=== PATIENT | female | born 1995 | race Caucasian/White ===

== ENCOUNTER 2025-06-07 21:22 | Emergency (ER) | payer MEDICAID, SELFPAY ==
--- OUTSIDE RECORDS SUMMARY | 2023-12-21 10:30 | XMS_ITS ---
Author Organization [facility] vices Address [address] [place], [place] [id number] Care Team Providers Care Mushroom Spawn Maker Name Role Phone Ruthann Garcia Primary Care Provider [phone] Jenifer Belcher REASON FOR VISIT F/u Diarrhea/ GERD Social History Sex Assigned At : Social History Observation Description Sex Assigned At Female Encounters Encounter Location Date Provider Diagnosis Main [address] [place], [place] [id number] 12/21/2023 Jenifer Mota Plan Of Treatment No Information Progress Notes * Doug PRICE LDOB:[birth year] (29 yo F)Acc No.[id number]:12/21/2023 Medical Note Patient: Shreyas Suhute Jacob :?Jenifer Latham, MSN, BALLOON SANDER, ELEVATOR ERECTOR HELPER-CDOB: 1995???Age:28 Y???Sex:FemaleDate:12/21/2023hone:[phone]:[address] [place], [place] [id number]:Ruthann Garcia Subjective: * Chief Complaints: * F /u Diarrhea/ GERD Billing Information: * Procedure Codes: * Electronic signature of KALLIE Smith on 06/07/2025 at 09:48 PM ESTSign off status: Pending * Provider: Dori Latham, MSN, BALLOON SANDER, ELEVATOR ERECTOR HELPER-C Date: 0 12/21/2023 Generated for Printing/Faxing/eTransmitting on:?06/07/2025 09:48 PM EST
--- OUTSIDE RECORDS SUMMARY | 2024-05-03 03:30 | XMS_ITS ---
Author Organization [facility] vices Address [address] [place], [place] [id number] Care Team Providers Care Cone Picker Name Role Phone Ruthann Garcia Primary Care Provider REASON FOR VISIT exposure to lead Social History Sex Assigned At : Social History Observation Description Sex Assigned At Female Encounters Encounter Location Date Provider Diagnosis Main [address] [place], [place] [id number] 05/03/2024 Ruthann Garcia Plan Of Treatment No Information Progress Notes * Doug PRICE LDOB:[birth year] (29 yo F)Acc No.[id number]:05/03/2024 Medical Note Patient: Doug Suh :?Ruthann Garcia MDDOB:1995???Age:28 Y???Sex: FemaleDate:05/03/2024hone:[phone]:[address] [place] [id number] Subjective: * Chief Complaints: * E xposure to lead Billing Information: * Procedure Codes: * Electronic signature of Ruthann Garcia MD on 06/07/2025 at 09:48 PM ESTSign off status: Pending * Provider: Elise Garcia MD Date: 07/03/2023 Generated for Printing/Faxing/eTransmitting on:?06/07/2025 09:48 PM EST
[2025-06-07] VITALS (9 sets, daily range): BP systolic 137–152; BP diastolic 82–103; PULSE 70–81; TEMP 36.8; O2SAT 92–100; BMI 49.9
--- NOTE | 2025-06-07 21:37 | ECG_ITS ---
[facility] Test Date: 2025-06-07 Pat Name: BEATRIZ PRICE Department: Room: - Gender: Female Chief Architect: : 1995 Requested By: Madi Taveras Order Number: [id number] Brenna MD: BERTRAM BADILLO M.D. Measurements Intervals [place] Rate: 80 P: -14 WA: 140 QRS: -47 QRSD: 98 T: 10 QT: 384 QTc: 419 Interpretive Statements 1100 Sinus rhythm 2440 Incomplete right bundle branch block 2630 Left anterior fascicular block 8003 Consistent with pulmonary disease 9150 abnormal ECG Compared to ECG 11/15/2017 22:57:56 Incomplete right bundle-branch block now present Left anterior fascicular block now present Electronically Signed On 06-07-2025 22:43:20 EST by BERTRAM BADILLO M.D.
--- OUTSIDE RECORDS SUMMARY | 2025-06-07 21:47 | XMS_ITS | Clinical Summary ---
Demographics Address [address] [place] [address] Mobile Phone Home Phone Email Address Email Address Preferred Language Malagasy Marital Status Single Advent Affiliation Unknown Race or A laska Grayling Additional Race(s) White Ethnic Group or Author Organization [employer] Address [id number] [address] [place] [address] Care Team Providers Care Seat Cover Installer Name Role Phone Brandon Mcqueen PA-C Primary Care Provider [phone] Allergies Active AllergyReactionsCriticalityNoted EjynPppaeealZkmqjldujk05/19/2017 Medications MedicationSigDispense QuantityRefillsLast FilledStart DateEnd DateStatus loperamide (IMODIUM) 2 mg capsule Take 1 capsule (2 mg total) by mouth as needed for diarrhea.12/28/2023ctive dicyclomine (BENTYL) 20 mg tablet Take 1 tablet (20 mg total) by mouth as needed.10/18/2023ctive pantoprazole (PROTONIX) 40 mg EC tablet Indications:Gastroesophageal reflux disease, unspecified whether esophagitis presentTake 1 tablet (40 mg total) by mouth in the morning and 1 tablet (40 mg total) before bedtime. 120 tablet 03/22/2024ctive Active Problems ProblemNoted DateDiagnosed DateFamily history of coronary artery disease 01/27/2022Morbid gdwpada9601/27/2022 Family History Medical HistoryRelationNameCommentsNo Known ProblemsFatherCoronary artery diseaseMaternal grandparentDiverticulitisMotherFibromyalgiaMotherRelationName StatusCommentsFatherAliveMaternal grandparentAliveMotherAlive Social History Tobacco UseTypesPacks/DayYears UsedDateSmoking Tobacco: NeverSmokeless Tobacco: Never Tobacco Cessation:Counseling Given: Not Answered Alcohol UseStandard Drinks/WeekCommentsNot Currently0 (1 standard drink = 0.6 oz pure alcohol)occasionallyChildcareAnswerDate ZmtnootdAuqehrephXueysxq00/12/2019 EmploymentAnswerDate IdcnhbnuSksirgefakPhyoalt15/12/2019Purpose - LifeAnswerDate RecordedPurpose and direction in vtlwHvjgtxd07/11/2021CommentsUnknownSex and Gender InformationValueDate RecordedSex Assigned at GlqwvHuzvgb52/20/2024 11:06 AM EDTLegal JlyOvmjet50/06/2015 11:51 AM EDTGender IdentityFemale 03/22/2024 11:06 AM EDTSexual OrientationNot on file Last Filed Vital Signs Vital SignReadingTime TakenCommentsBlood Npxrqicd062/9784304/02/2024 11:30 AM EDT ok to d/c per dr. torresjtpaiumYeadz0124/01/2024 11:30 AM TIXZbxqwbuuysd51.5 ??C (97.7 ??F)04/02/2024 9:03 AM EDTRespiratory Ivxw868004/02/2024 11:30 AM EDTOxygen Otbfgwmwhu058%04/02/2024 11:30 AM EDTInhaled Oxygen Concentration--Auswzr537 kg (302 lb)04/02/2024 9:03 AM QNDVgjvfl153.6 cm (5' 6 )04/02/2024 9:03 AM EDTBody Mass Index48.7404/02/2024 9:03 AM EDT Plan of Treatment Health MaintenanceDue DateLast DoneCommentsDepression Gbydspvfb15/13/2007 DTaP,Tdap and Td Vaccines (6 - Td or Tdap), 03/27/2001, 06/12/1997, Additional history existsInfluenza Eiteoxy8703/03/2025dult BMI Dxjzszhfm63Tobacco Huoqnvzoi75ap Smear Medical Devices Not on file Procedures Procedure NamePriorityDate/TimeAssociated DiagnosisCommentsPAP SMEARRoutine 08/25/2022 6:24 AM EST Encounter for screening for malignant neoplasm of cervix Encounter for screening for human papillomavirus (HPV) from Last 3 Months or Most Recently Relevant to Health Maintenance Results * Pap Smear (08/25/2022 6:24 AM EST)Specimen (Source)Anatomical Location / LateralityCollection Method / VolumeCollection TimeReceived Time08/25/2022 6:24 AM EST08/25/2022 6:38 AM EST Narrative COPATH - 08/26/2022 1:27 PM EST [facility] ? [address] [place] [address] ? [place] [address] ? Gynecologic Cytology Consultation ? Patient Name:DOUG PRICE:1995 (Age: 27)Gender:FTaken:08/25/2022Reported:08/26/2022hysician(s):Rosy Moyer M.D. ([phone])Copy To: Rec. #:[id number]: #[id number] Final Cytologic Interpretation ThinPrep Pap Test (Cervical): Satisfactory for evaluation. A transformation zone component is present. NEGATIVE FOR INTRAEPITHELIAL LESION OR MALIGNANCY. ?? [facility] [place]/08/26/2022 Interpretation performed [place] [address], License number: [id number]. Electronically Signed Out By ?VINCENT Mendez(ASCP) Date of Last Menstrual Period: ? (None Given) Other Clinical Conditions: Z12.4 Screening for malignant neoplasm of cervix Z11.51 Screening for HPV Source of Specimen ??ThinPrep Pap Test (Cervical) ? Thin Prep Pap (RESERVATIONS MANAGER) Fee Code(s): ?? G0145 Authorizing ProviderResult TypeResult StatusAbeer Comfort MDPATHOLOGY/CYTOLOGY ORDERABLESFinal ResultPerforming OrganizationAddressCity/State/ZIP CodePhone Number COPATH from Last 3 Months or Most Recently Relevant to Health Maintenance Insurance Care Teams Team MemberRelationshipSpecialtyStart DateEnd Date Brandon Mcqueen PA-C PCP - GeneralPhysician Assistant02/01/24
--- OUTSIDE RECORDS SUMMARY | 2025-06-07 21:48 | XMS_ITS | Clinical Summary ---
Demographics Address [address] [place] [address] Home Phone Mobile Phone Email Address Preferred Language en Marital Status Unmarried Mormonism Affiliation Unknown Race Other Race Ethnic Group or Author Organization [facility] Address [address] [place] [address] Care Team Providers Care Electrical Manufacturing Engineer Name Role Phone Unavailable Primary Care Provider Unavailabl e Allergies No known active allergies Medications MedicationSigDispense QuantityRefillsLast FilledStart DateEnd DateStatus famotidine (Pepcid) 20 MG tablet Take 20 mg by mouth in the morning and 20 mg before bedtime.10/18/2023ctive metroNIDAZOLE (Metrolotion) 0.75 % lotion lotion Indications:Rash and other nonspecific skin eruptionApply thin layer to face, once daily, 30 day supply 59 mL 1104Active Active Problems No known active problems Social History Tobacco UseTypesPacks/DayYears UsedDateSmoking Tobacco: NeverSmokeless Tobacco: Never Tobacco Cessation:Counseling Given: Not Answered CommentsUnknownSex and Gender InformationValueDate RecordedSex Assigned at BirthNot on fileLegal PjnJtxyeg65/15/2023 11:40 PM EDTGender IdentityNot on fileSexual OrientationNot on file Plan of Treatment Not on file Insurance * Guarantor: Doug Galeana LAccount TypeRelation to PatientDate of BirthPhone Billing AddressPersonal/JxzxjtLkcs1995 [address] [place] [address]
--- OUTSIDE RECORDS SUMMARY | 2025-06-07 21:48 | XMS_ITS | Patient Health Record ---
Author Organization [facility] vices Address [address] [place], [place] [address] Care Team Providers Care Correctional Case Manager Name Role Phone JoseRuthann hernández Primary Care Provider [phone] Allergies Allergen (clinical drug ingredient) Drug/Non Drug Allergy documented on EMR Reaction Allergy Type Onset Date Status [place] FlavorRash , EdemaDrug AllergyActive Reason For Referral No Information Medications Medication SIG (Take, Route, Frequency, Duration) Notes Start Date End Date Status Cephalexin 500 MG Capsule Oral; Duration: 5 Days Not-Taking/PRNPantoprazole Sodium 40 MG Tablet Delayed Release1 tablet Orally Twice daily; Duration: 90 days12/28/2023ctiveAspirin 81 81 MG Tablet Delayed Release1 tablet Orally Once a dayNot-Taking/PRNNitrofurantoin Monohyd Macro 100 MG Capsule1 capsule with food Orally every 12 hrs; Duration: 5 days10/06/2022 Not-Taking/PRNLoperamide HCl 2 MG Capsule1 capsule Orally two times daily as needed; Duration: 30 days12/28/2023ctiveDicyclomine HCl 20 MG Tablet 1 tablet Orally Three times a day; Duration: 14 days As needed 10/18/2023ctive Social History Tobacco Use: Social History Observation Description Date Details (start date - stop date) Never Smoker NA - NA Sex Assigned At : Social History Observation Description Sex Assigned At Female Social History Drugs/Alcohol/Caffeine:Social InfoQuestionAnswerNotesDrugsHave you used drugs other than those for medical reasons in the past 12 months?NoCaffeineIntake:none Pop occasionallyTobacco Use:Social InfoQuestionAnswerNotesTobacco Use/Smoking Tobacco use:nonsmokerpatient entered dataAdditional DetailsCategorySocial InfoOptionsDetailsMiscellaneous:Occupation:works full-timeCulture/Language BarrierNoEducation LevelCollegeBarriers to LearningNoneLearning PreferenceDoing or practicing, Watching a video, Reading, Talking in a small groupHow often do you need to have someone help you read instructionsNeverSafetyPatient feels safe in relationshipsYesDrugs/Alcohol/Caffeine:Do you smoke marijuana?DeniesDo you drink alcohol?Yes - rarely Problems Problem Type SNOMED Code ICD Code Onset Dates Problem Status W/U Status Risk Notes Problem Gastroesophageal ref lux disease (728987614) GERD (gastroesophageal reflux disease) (K21.9) Activeconfirmed -PPI somewhat helpful, counseled on avoiding known triggers -discussed and making GI / Gen Surgery referral for evaluation EGD, PVU ProblemDysmenorrhea (351016815)Dysmenorrhea (N94.6)ActiveconfirmedProblemHeavy periods (983752426)Heavy periods (N92.0)ActiveconfirmedProblemMorbid obesity (861138359)Obesity, morbid, BMI 50 or higher (E66.01)ActiveconfirmedProblem Metallic taste (33982173)Metallic taste (R43.8)ActiveconfirmedProblemRosacea (927389829)Rosacea (L71.9)ActiveconfirmedProblemPericoronitis (37257011) Pericoronitis (K05.30)ActiveconfirmedProblemIrregular periods (03338894) Irregular menstruation (626.4) (626.4)ActiveconfirmedProblemEruption of skin (710039264)Rash and nonspecific skin eruption (782.1) (782.1)09/07/2009ctive confirmedProblemDepression screening (997399337)Screening for depression (Z13.31)ActiveconfirmedDescription:Depression screenProblemVaginal discharge (149278558)Vaginal discharge (N89.8)ActiveconfirmedProblemFatigue (16895237) Fatigue (R53.83)Activeconfirmed Comment:vague symptoms, suspect thyroid non-ill appearing on exam labs studies RTO in 2 weeks PVU, ProblemGynecological examination normal (360038087193482)Well woman exam with routine gynecological exam (Z01.419)Activeconfirmed Comment:encouraged self breast exams,Story:menarche at 10 yo, q28 days, last 2 days, dysmenorrhea ocp previously helped with dysmenorrhea no std coitarche 17 yo, 1 lt partner, none current, ProblemObesity (545817095)Obesity (E66.9)ActiveconfirmedProblemCarbuncle and furuncle (680.) (680)10/29/2008ctiveconfirmedProblemAcute sinusitis (83399629) Acute infection of nasal sinus (J01.90)ActiveconfirmedComment:Instructed patient and father to take all medications as prescribed, increase oral fluids, return if symptoms worsen or do not get better. Patient and father verbalize and agree with plan.,Description:Acute sinusitisProblemNeck sprain (455714063)Neck sprain and strain (847.0) (847.0)Activeconfirmed Comment:C/w medication as prescribed by the ER. Alternate ice and heat for 20-30 minutes 3-4 times daily. Follow up in 1-2 weeks with any worsening or persisting pain, or PRN with any other concerns. All questions answered. Mom and patient verbalized understanding., ProblemAcute pharyngitis (411323846)Pharyngeal inflammation (J02.9)Active confirmedDescription:PharyngitisProblemAcute upper respiratory infection (46952598)Acute URI (465.9) (465.9)Activeconfirmed Comment:1)Feels stuffy( nose) and has a sore throat. Exam: nose; secretions+, throat: mild pharyngeal erythema+. URI. 2)Strep was negative. 3)Send for Throat Cx. 4)Will call in antibiotic if positive. 5)Call in 2 days for update. 6)FU PRN. Mom verbalized understanding Prescribed Azithromycin. Throat Cx was negative, but brother's throat cx came back positive for Streptococcus., ProblemFamily history of cardiovascular disease (859352981)Family history of cardiovascular disease (Z82.49)09/10/2009ctiveconfirmedStory:ASSESSMENT: The cardiomyopathy disease that the grandmother has is directly related to coronary artery disease( She has had multiple vessel bypass surgery). Doug's last lipid profile ( in 2007) was not grossly abnormal but that was 2 years ago. S he is currently normotensive but with he elevated BMI she is at risk for HTN, DM type 2 and hyper lipidemia and subsequently coronary heart disease . It is possible that the a hereditary hyperlipidemia syndrome exist but upon observation the entire family is obese,ProblemContact hand eczema (448821804)Contact dermatitis and eczema, due to cause (692.9) (692.9)ActiveconfirmedComment:Instructed mother and patient that previous orders from last appointment should be carried out. Referral to dermatology per request of patient and mother. Return if symptoms worsen or do not get better. Patient verbalizes and agrees with plan of care., ProblemContraception care education (723401548) control counseling (Z30.09) Activeconfirmed Comment:Had a lengthy discussion with patient regarding the different short and care home control options including, pills, ring, patch, injections, implants, and intrauterine devices hormonal and nonhormonal. Explained the chances of unintended with typical and perfect use. Discussed the risks and benefits and side effects of each at length and the patient opted for oral contraceptive pills. Explained the benefits of OCP's with cycle regulation and shortening and well as treating her dysmenorrhea. Stressed the side effects including, nausea and possible GI disturbance which she seems to have issues with and the increased risk for venous thromboembolism especially given her obesity and especially if she starts smoking. Patient verbalized understanding and wishes to try it. 3 months supply given. Advised to keep a menstrual period diary and we will review with her next visit. Reminded patient that this method will not protect against STD's and should continue using condoms for protection. Patient has not had a Pap for several years and will schedule appointment before she leaves., ProblemAllergic rhinitis (38350173)Allergic rhinitis (J30.9)Activeconfirmed Comment:low suspicion of reflux as no hx of epigastric pain treat for seasonal allergies return in 1 week, if no imporvement plan to refer to ENT, ProblemBackache (651512227)Backache (724.5) (724.5)12/30/2005ctiveconfirmed ProblemCandidal vulvovaginitis (80830809)Candidiasis of vulva and vagina (112.1) (112.1)04/16/2009ctiveconfirmedProblemInfluenza (487.) (487)05/11/2009ctive confirmedProblemVitamin D deficiency (22351550)Vitamin D deficiency (E55.9) ActiveconfirmedComment:level is 8.,ProblemGastroesophageal reflux disease (680598027)Reflux (530.81)Activeconfirmed Comment:+hoarseness, reflux and heartburn. Start PPI advised not to lie flat 2-3 hours after a meal. Keep food diary RTO in 2 weeks to evaluate effectiveness, ProblemConstipation (02638114)CN (constipation) (K59.00)12/30/2005ctive confirmedDescription:ConstipationProblemAcute upper respiratory infection (60909947)Acute upper respiratory infection of multiple sites (J06.9)Active confirmedProblemWell child visit (641067140)Routine infant or child health check (V20.2) (V20.2)09/10/2009ctiveconfirmedProblemObesity (disorder) (910402551) Overweight and obesity (E66.3)09/10/2009ctiveconfirmedProblemContraception care education done (703661908340198)BCP ( control pills) initiation (Z30.011) ActiveconfirmedProblemGeneralized abdominal pain (550932139)Abdominal pain, generalized (R10.84)Activeconfirmed Encounters Encounter Location Date Provider Diagnosis [facility] [address] [place] [address] 04/21/2025 Ruthann Jose Plan Of Treatment No Information Insurance Providers Payer Name Payer Address Payer Phone Subscriber Number Group Number Insured Name Patient Relationship to Insured Coverage Start Date Coverage End Date Alphonso [facility] [address] [place], [place] [id number] Doug Meza Self - patient is the insured [facility] [address] [place] [phone] [id number], AlyhaSelf - patient is the [id number] 2021 Medicaid [facility] after [address] [place], [place] [id number], AlyhaSelf - patient is the [id number] 2020Medicaid [facility] [address] [place], [place] [id number], AlyhaSelf - patient is the [id number] 2021 Medical (General) History Medical History History ICD Code Adolescent dysmenorrhea Dysmenorrhea Overweight and obesitySurgical History Surgery Date(Month/Year) Tonsillectomy and adenoidectomy
[2025-06-07 21:56] LABS: Hematocrit 42.6 % (36.0-48.0); Hemoglobin 14.3 g/dL (12.0-16.0); Immature Granulocytes Abs Auto 0.04 10^3/uL (0.00-0.03); Immature Granulocytes Pct Auto 0.3 % (0.0-0.5); Lymphocytes Absolute Auto 2.8 10^3/uL (1.2-3.8); Mean Corpuscular HGB Conc 33.6 g/dL (29.9-35.2); Mean Corpuscular Hemoglobin 28.8 pg (26.7-34.0); Mean Corpuscular Volume 85.9 fL (81.0-99.0); Platelet Count 399 10^3/uL (150-450); Red Blood Count 4.96 10^6/uL (4.20-5.40); White Blood Count 12.7 10^3/uL (4.0-11.0)
--- NOTE | 2025-06-07 21:58 | ED.GENADUL1 ---
HPI HPI - General Adult General Chief complaint: Dizziness Stated complaint: Dizziness Time Seen by Provider: 06/07/25 21:31 Source: patient Mode of arrival: walk-in Limitations: no limitations History of Present Illness HPI narrative: cc - high blood pressure Pt came to the Ed with her mother for evaluation after having a variety of symptoms and then noting elevated BP on the wrist device she was using at home. No prior history of HTN but she also has not seen a primary care physician in years - she told me that her prior PCP is no longer available. Complaints over the last few weeks include nausea, dizziness, visual blurring - although she is having none of those now. Manual BP 152/94 initially, machine BP 138/62 while I was in the room examining her. LMP was 2 weeks ago and periods have been normal amount and duration - she doubts . No recent injury or trauma affecting the head, neck or torso. She admitted to a sinus cold for the last few days Related Data Home Medications ?Medication ?Instructions ?Recorded ?Confirmed No Known Home Medications 06/07/25 06/07/25 Allergies Allergy/AdvReac Type Severity Reaction Status Date / Time No Known Drug Allergies Allergy Verified 06/07/25 21:33 PFSH PFSH Social History Little interest or pleasure in doing things: not at all Feeling down, depressed, or hopeless: not at all Exam Narrative Exam Narrative: Nurses notes and vital signs reviewed and patient is not hypoxic. afebrile General: Well-appearing and in no apparent distress. Skin: Warm, dry, no pallor noted. No rash. Eye: Pupils are equal, round and EOMI. No scleral icterus. Ears, Nose, Mouth, and Throat: Oral mucosa is moist Cardiovascular: Regular Rate and Rhythm without murmur, gallop or rub. Respiratory: No accessory muscle use or respiratory distress. Lungs are clear to auscultation, no wheezing, rales or rhonchi Musculoskeletal: normal ROM, no calf or popliteal tenderness, no lower extremity edema/swelling Neurological: A&O x4. No cranial nerve dysfunction observed. No truncal ataxia. Moves all extremities. Sensation intact. Psychiatric: Cooperative and interactive. Normal mood and affect. Constitutional Vital Signs, click to edit/add: Last Vital Signs Temp 98.3 F 06/07/25 21:25 Pulse 77 06/07/25 21:25 Resp 16 06/07/25 21:25 BP 152/94 H 06/07/25 21:38 Pulse Ox 99 06/07/25 21:25 O2 Del Method Room Air 06/07/25 21:25 Course Vital Signs Vital signs: Vital Signs Temperature 98.3 F 06/07/25 21:25 Pulse Rate 77 06/07/25 21:25 Respiratory Rate 16 06/07/25 21:25 Blood Pressure 146/103 H 06/07/25 21:25 Pulse Oximetry 99 06/07/25 21:25 Oxygen Delivery Method Room Air 06/07/25 21:25 Temperature 98.3 F 06/07/25 21:25 Pulse Rate 77 06/07/25 21:25 Respiratory Rate 16 06/07/25 21:25 Blood Pressure 152/94 H 06/07/25 21:38 Pulse Oximetry 99 06/07/25 21:25 Oxygen Delivery Method Room Air 06/07/25 21:25 Medical Decision Making MDM Narrative Medical decision making narrative: Patient was placed on surveillance system monitor and EKG obtained. Blood drawn and sent for evaluation. White blood cell count minimally elevated 12.7. No left shift is noted. CMP is unremarkable. Total bilirubin is elevated 1.6, direct bilirubin is Patient given reassurance and discharged home. She was referred to a primary care provider for follow-up. Blood pressure recheck 137/99. Will not start any antihypertensives at this time. I talked her about decreasing her salt intake, avoiding or limiting processed foods including frozen, canned, fast food while also attempting to undergo increased activity and some weight loss. Lab Data Lab results reviewed: Yes I reviewed the patient's lab results Labs: Lab Results 06/07/25 Range/Units 21:48 WBC 12.7 H (4.0-11.0) 10^3/uL RBC 4.96 (4.20-5.40) 10^6/uL Hgb 14.3 (12.0-16.0) g/dL Hct 42.6 (36.0-48.0) % MCV 85.9 (81.0-99.0) fL MCH 28.8 (26.7-34.0) pg MCHC 33.6 (29.9-35.2) g/dL RDW 13.1 (11.0-15.0) % Plt Count 399 (150-450) 10^3/uL MPV 10.3 (9.5-13.5) fL Neut % (Auto) 68.5 (43.0-75.0) % Lymph % (Auto) 22.2 (20.5-60.0) % Kendall % (Auto) 7.1 (1.7-12.0) % Eos % (Auto) 1.7 (0.9-7.0) % Baso % (Auto) 0.2 (0.2-2.0) % Neut # (Auto) 8.7 H (1.4-6.5) 10^3/uL Lymph # (Auto) 2.8 (1.2-3.8) 10^3/uL Kendall # (Auto) 0.9 H (0.3-0.8) 10^3/uL Eos # (Auto) 0.2 (0.0-0.7) 10^3/uL Baso # (Auto) 0.0 (0.0-0.1) 10^3/uL Abs Immat Gran (auto) 0.04 H (0.00-0.03) 10^3/uL Imm/Tot Granulo (auto) 0.3 (0.0-0.5) % Sodium 139 (136-145) mmol/L Potassium 3.6 (3.5-5.1) mmol/L Chloride 103 (98-107) mmol/L Carbon Dioxide 28.3 (21.0-32.0) mmol/L Anion Gap 11.3 BUN 11.0 (7.0-18.0) mg/dL Creatinine 0.63 (0.55-1.02) mg/dL Est GFR ( Amer) >60 (>=60 mL/min/1.73m^2) Est GFR (Non-Af Amer) >60 (>=60 mL/min/1.73m^2) BUN/Creatinine Ratio 17.5 Glucose 83 (74-106) mg/dL Calcium 8.8 (8.5-10.1) mg/dL Total Bilirubin 1.6 H (0.2-1.0) mg/dL AST 16 (15-37) U/L ALT 27 (14-59) U/L Alkaline Phosphatase 93 (46-116) U/L Total Protein 7.7 (6.4-8.2) g/dL Albumin 3.7 (3.4-5.0) g/dL Globulin 4.0 g/dL Albumin/Globulin Ratio 0.9 ECG Data Attestation: I personally reviewed and interpreted this ECG as follows: Interpretation: EKG interpretation:Emergency Department physician interpretation.Normal sinus rhythm at 80bpm.incomplete right bundle branch block, left anterior fascicular block. No ST segment elevation or depression. Discharge Plan Discharge Chief Complaint: Dizziness Clinical Impression: Borderline hypertension Patient Disposition: Home, Self-Care Time of Disposition Decision: 22:25 Prescriptions / Home Meds: No Action No Known Home Medications Print Language: Cymraes Instructions: Hypertension (ED) Referrals: [facility] [Primary Care Provider, Unknown] - 1 week
[2025-06-07 22:09] LABS: Alanine Aminotransferase 27 U/L (14-59); Albumin Globulin Ratio 0.9; Albumin Level 3.7 g/dL (3.4-5.0); Alkaline Phosphatase 93 U/L (46-116); Anion Gap 11.3; Aspartate Amino Transferase 16 U/L (15-37); Blood Urea Nitrogen 11.0 mg/dL (7.0-18.0); Calcium 8.8 mg/dL (8.5-10.1); Carbon Dioxide 28.3 mmol/L (21.0-32.0); Chloride 103 mmol/L (98-107); Estimated GFR (African America >60 (>=60 mL/min/1.73m^2); Estimated GFR (Non-African Ame >60 (>=60 mL/min/1.73m^2); Globulin 4.0 g/dL; Glucose 83 mg/dL (74-106); Potassium 3.6 mmol/L (3.5-5.1); Sodium 139 mmol/L (136-145); Total Protein 7.7 g/dL (6.4-8.2)
== END 2025-06-07 22:48 | disposition home or self-care (01) ==
PROVIDERS: Emergency Provider Emergency Medicine
DX: R03.0 Elevated blood-pressure reading, without diagnosis of hypertension (principal)
CPT/HCPCS: 36415; 80053; 82248; 85025; 93005; 99283; 99284